=== PATIENT | male | born 1970 | race American Indian/Alaskan Native ===

== ENCOUNTER 2017-02-06 16:25 | Outpatient (CLI) | payer MEDICARE ==
[2017-02-06 18:20] LABS: Basophils Body Fluid 0 %; Eosinophils Body Fluid 0 %; Reactive Lymph Body Fluid 0 %
== END 2017-02-06 16:26 | disposition home or self-care (01) ==
LOC: LABHHL 16:25
PROVIDERS: ATTEND Orthopaedic Surgery
DX: M17.11 Unilateral primary osteoarthritis, right knee (principal); M17.12 Unilateral primary osteoarthritis, left knee
CPT/HCPCS: 85048; 87116; 89051

== ENCOUNTER 2018-05-20 07:55 | Outpatient (CLI) | payer BC, MEDICARE ==
[2018-05-20] MEDS ORDERED: XYLOCAINE 1%/ EPI 1:100,000 INFILTRATI ONE (09:11)
[2018-05-20] MEDS ORDERED: XYLOCAINE 2% INFILTRATI ONE (09:12)
--- NOTE | 2018-05-20 14:36 | Fluoroscopy Report ---
FLUOROSCOPY ARTHROGRAM KNEE RIGHT FLUOROSCOPY ARTHROGRAM KNEE LEFT History: Derangement of meniscus due to to old injury or tear. Impression: Informed consent was obtained. Sterile technique was utilized. 1% lidocaine for skin anesthesia. Using fluoroscopy guidance, bilateral knee arthrograms were performed with a 22-gauge needle from the lateral patellar approach. 4 fluoroscopic images were captured. Approximately 20 cc of a solution containing 0.1 mmol gadolinium was injected intra-articularly in both knees. The patient tolerated the procedure without difficulty and was sent to MRI in stable condition. Impression: Successful bilateral knee arthrogram for MRI evaluation.
--- NOTE | 2018-05-21 10:10 | Magnetic Resonance Report ---
MR LOWER EXTREMITY JOINT LEFT WITH CONTRAST History: Derangement meniscus, left knee pain. Technique: Multisequence, multiplanar MRI was performed after injection of intra-articular contrast agent. Comparison: None. Findings: There is adequate distention of the joint capsule. Partial soft tissue injection of the contrast agent is noted in the lateral knee. The bone marrow signal is within normal limits. No evidence for fracture, osteochondral defect or bone lesion. Mild to moderate joint space narrowing and cartilage loss is noted in the medial compartment. The remaining intra-articular cartilage is within normal limits. The medial meniscus is abnormal. A horizontal cleavage tear is suspected in the body and posterior horn of the medial meniscus. There appears to be mild fragmentation of the posterior horn of the medial meniscus near its posterior insertion site. The lateral meniscus is normal. The ACL, PCL, MCL, LCL complex and extensor complexes are intact. IMPRESSION: Mild to moderate osteoarthritic changes in the medial compartment. Complex tear of the body and posterior horn of the medial meniscus as outlined above.
--- NOTE | 2018-05-21 10:13 | Magnetic Resonance Report ---
MR LOWER EXTREMITY JOINT RIGHT WITH CONTRAST History: Derangement meniscus, old tear or injury, right knee pain. Technique: Multisequence, multiplanar MRI was performed following administration of intra-articular contrast agent. Comparison: None. Findings: There is good distention of the joint capsule with contrast agent. The bone marrow signal is within normal limits. No evidence for fracture, osteochondral defect or bone lesion. Moderate joint space narrowing and cartilage loss is noted in the medial compartment. There is mild cartilage thinning in the lateral compartment. The medial meniscus is abnormal. A complex tear is identified in the body and posterior horn of the medial meniscus. The lateral meniscus is normal. The ACL, PCL, MCL, LCL complex and extensor complex are intact. IMPRESSION: Moderate osteoarthritis in the medial compartment. Complex tear in the body and posterior horn of the medial meniscus.
== END 2018-05-20 07:56 | disposition home or self-care (01) ==
LOC: FLUORO 07:55
PROVIDERS: ATTEND Physical Medicine & Rehabilitation Pain Medicine
DX: M23.322 Other meniscus derangements, posterior horn of medial meniscus, left knee (principal); M23.321 Other meniscus derangements, posterior horn of medial meniscus, right knee; M17.0 Bilateral primary osteoarthritis of knee
CPT/HCPCS: 73721